=== PATIENT | female | born 1985 | race Caucasian/White ===

== ENCOUNTER → 2019-01-13 | Outpatient (CLI) | payer BC ==
--- NOTE | 2019-01-13 10:10 | RAD ---
AP and Lateral Views of the Chest 01/13/2019 9:19 AM Indication: Productive Cough Comparison: None Findings: There is no focal consolidation or infiltrate identified. The cardiomediastinal silhouette is within normal limits. There is no evidence of pneumothorax or pleural effusion. No acute osseous abnormalities are identified. Impression: No evidence of acute cardiopulmonary process. Electronically signed by: Nakul Walls MD (01/13/2019 10:07 AM) [id number]
== END | disposition home or self-care (01) ==
LOC: PMG 09:13
PROVIDERS: ATTEND Physician Assistant Medical
DX: J32.9 Chronic sinusitis, unspecified (principal); R05 Cough; R78.89 Finding of other specified substances, not normally found in blood
CPT/HCPCS: 71046

== ENCOUNTER → 2019-03-06 | Outpatient (CLI) | payer BC ==
--- NOTE | 2019-03-06 14:57 | RAD ---
EXAM: Pelvic sonogram. HISTORY: IUD placement. TECHNIQUE: Transvaginal sonographic imaging of the pelvis was performed. COMPARISON: None. FINDINGS: The uterus measures 8.5 x 3.8 x 5.2 cm. The endometrial stripe measures 7 mm in thickness. There is an intrauterine contraceptive device within the endometrial cavity. The ovaries are obscured due to bowel gas. No pelvic free fluid is seen. IMPRESSION: 1. IUD in expected position. 2. Obscured ovaries. Electronically signed by: Namita Shah MD (03/06/2019 2:54 PM) [place] [id number]
== END | disposition home or self-care (01) ==
LOC: DXRAD 10:16
PROVIDERS: ATTEND Physician Assistant Medical
DX: Z97.5 Presence of (intrauterine) contraceptive device (principal)
CPT/HCPCS: 76830; 76856